=== PATIENT | male | born 1990 | race Caucasian/White ===

== ENCOUNTER 2020-01-08 00:08 | Emergency (ER) | payer SELFPAY ==
[~2020-01-08] VITALS: Ht 188 cm; Wt 131.5 kg
--- NOTE | 2020-01-08 00:29 | Emergency Room Report ---
History of Present Illness General Chief Complaint: Chest Pain Source: Patient Present Illness HPI This is a 29-year-old male with no past medical history who presents with complaint of chest pain. Onset occurred about an hour and a half ago. He was on the computer doing homework when he felt sharp pain to his left chest area. It radiates to his right thigh. He also complaining of left arm pain to the elbow. No nausea no vomiting. No fever chills. Pain was 7 out of 10. This is a third episode this week. No exertional component. No diaphoresis. No shortness of breath. Did not take anything for it. Denies any heavy lifting. Allergies: Coded Allergies: AMOXICILLIN (Verified Allergy, Unknown, 01/08/20) PENICILLINS (Verified Allergy, Unknown, 01/08/20) COVID-19 Screening Contact w/high risk pt: No Experienced COVID-19 symptoms?: No COVID-19 Testing performed [employer]: No Patient History Past Medical History: see triage record, old chart reviewed Past Surgical History: none Pertinent Family History: none Social History: Denies: smoking Immunizations: other Reviewed Nursing Documentation: PMH: Agreed; PSxH: Agreed Nursing Documentation-PMH Past Medical History: No Stated History Review of Systems Eye: Denies: eye pain, blurred vision ENT: Denies: ear pain, nose congestion, throat swelling Respiratory: Denies: cough, shortness of breath Cardiovascular: Reports: chest pain; Denies: palpitations Gastrointestinal: Denies: abdominal pain, diarrhea, nausea, vomiting Musculoskeletal: Denies: back pain, joint pain Skin: Denies: rash Neurological: Denies: headache, numbness Endocrine: Denies: increased thirst, increased urine Hematologic/Lymphatic: Denies: easy bruising All Other Systems: negative except mentioned in HPI Physical Exam Vital Signs Date Time Temp Pulse Resp B/P (MAP) Pulse Ox O2 Delivery O2 Flow Rate FiO2 01/08/20 00:15 99.0 82 16 147/94 (111) 98 Room Air Vitals with high blood pressure Sp02 EP Interpretation: reviewed, normal General Appearance: well appearing, no apparent distress, alert Head: normocephalic, atraumatic Eyes: bilateral eye PERRL, bilateral eye EOMI ENT: hearing grossly normal, normal pharynx Neck: full range of motion, supple, no meningismus Respiratory: chest non-tender, lungs clear, normal breath sounds Cardiovascular #1: regular rate, rhythm, no murmur Gastrointestinal: normal bowel sounds, non tender, no mass, no organomegaly, no bruit, non-distended Musculoskeletal: back normal, normal range of motion, gait/station normal Psychiatric: mood/affect normal Medical Decision Making Diagnostic Impression: Primary Impression: Chest pain Qualified Codes: R07.9 - Chest pain, unspecified ER Course Patient presents with atypical chest pain. No evidence of ACS, PE, dissection to name a few. Will discharge home. EKG Diagnostic Results Rate: normal Rhythm: NSR ST Segments: no acute changes ASA given to the pt in ED: Yes Rhythm Strip Diag. Results EP Interpretation: yes Rate: 80 Rhythm: NSR, no PVC's, no ectopy Chest X-Ray Diagnostic Results Chest X-Ray Diagnostic Results : Chest X-Ray Ordered: Yes # of Views/Limited/Complete: 1 View Indication: Chest Pain EP Interpretation: Yes Interpretation: no consolidation, no effusion, no pneumothorax, no acute cardiopulmonary disease Impression: No acute disease Electronically Signed by: Pascual Casarez MD Last Vital Signs Date Time Temp Pulse Resp B/P (MAP) Pulse Ox O2 Delivery O2 Flow Rate FiO2 01/08/20 00:15 99.0 82 16 147/94 (111) 98 Room Air Status: improved Disposition: HOME, SELF-CARE Condition: Stable Scripts No Active Prescriptions or Reported Meds Referrals: NON PHYSICIAN (PCP) Patient Instructions: Nonspecific Chest Pain Additional Instructions: Follow up with your doctor in a week. If symptoms continue, you may need referral to see middle card tender for stress test. Return if symptoms worsen. Pascual Casarez MD Jan 08, 2020 00:29
[2020-01-08] MEDS ORDERED: Aspirin Baby 81mg ORAL ONE (00:30)
--- NOTE | 2020-01-08 00:35 | NUR ---
ED Nurse Note: Patient walked in from home c/o left sided chest pain radiating to left arm and left upper back aching /10. Patient denies cardiac history. Patient aaox 4 and ambulatory with steady gait. Patient reports chest pain intermittent for about 3 times in the past 2 weeks. Patient changed into gown and placed on cable swager. No acute distress noted during assessment.
[2020-01-08 00:37] VITALS: BP 145/89
[2020-01-08 00:49] LABS: BASOPHILS % (AUTO) 2.8 % (0.0-2.0); EOSINOPHILS % (AUTO) 7.2 % (0.0-3.0); HEMATOCRIT 47.3 % (42.0-52.0); HEMOGLOBIN 15.9 G/DL (14.2-18.0); LYMPHOCYTES % (AUTO) 32.8 % (20.0-45.0); MEAN CORPUSCULAR VOLUME 82 FL (80-99); MONOCYTES % (AUTO) 9.7 % (1.0-10.0); NEUTROPHILS % (AUTO) 47.5 % (45.0-75.0); PLATELET COUNT 193 K/UL (150-450); RED BLOOD COUNT 5.75 M/UL (4.70-6.10); RED CELL DISTRIBUTION WIDTH 11.7 % (11.6-14.8); WHITE BLOOD COUNT 7.9 K/UL (4.8-10.8)
[2020-01-08 00:54] LABS: ANION GAP 11 mmol/L (5-15); BLOOD UREA NITROGEN 15 mg/dL (7-18); CALCIUM 9.4 MG/DL (8.5-10.1); CARBON DIOXIDE 28 MMOL/L (21-32); CHLORIDE 103 MMOL/L (98-107); POTASSIUM 3.7 MMOL/L (3.5-5.1); SODIUM 141 MMOL/L (136-145)
[2020-01-08 00:59] LABS: ALANINE AMINOTRANSFERASE 75 U/L (12-78); ALBUMIN 4.5 G/DL (3.4-5.0); ALBUMIN/GLOBULIN RATIO 1.5 (1.0-2.7); ALKALINE PHOSPHATASE 89 U/L (46-116); ASPARTATE AMINO TRANSFERASE 25 U/L (15-37); BILIRUBIN,TOTAL 0.2 MG/DL (0.2-1.0)
[2020-01-08 01:45] VITALS: BP 129/78
--- NOTE | 2020-01-08 01:45 | NUR ---
ER DISCHARGE NOTE: Patient is cleared to be discharged per ERMD, pt is aox4, on room air, with stable vital signs. pt was given dc instructions, pt was able to verbalize understanding, pt id band and iv site removed intact without complications. pt is able to ambulate with steady gait. pt took all belongings. pt stable upon discharge.
--- NOTE | 2020-01-08 03:49 | Diagnostic Imaging Report ---
EXAM: XR Chest, 1 View CLINICAL HISTORY: CP TECHNIQUE: Frontal view of the chest. COMPARISON: No relevant prior studies available. FINDINGS: Lungs: Probable mild atelectasis at the lung bases. Pleural space: No definite plain film evidence for pneumothorax. Heart: Prominence of the cardiac silhouette which may at least partly be related to the technique. Mediastinum: Unremarkable. Bones/joints: Unremarkable. IMPRESSION: 1. Probable mild atelectasis at the lung bases. 2. Prominence of the cardiac silhouette which may at least partly be related to the technique.
== END 2020-01-08 01:45 | disposition home or self-care (01) ==
LOC: EMR 00:25
DX: R07.9 Chest pain, unspecified (principal); Z88.0 Allergy status to penicillin; M79.602 Pain in left arm
CPT/HCPCS: 36415; 71045; 80053; 84484; 85025; 85379; 93005; 99283